=== PATIENT | male | born 1990 | race Caucasian/White ===

== ENCOUNTER 2021-07-03 13:27 | Outpatient (CLI) | payer OTHER, SELFPAY ==
[2021-07-03 14:47] LABS: SARS-CoV-2 RNA PCR Negative (Negative)
== END 2021-07-03 13:28 | disposition home or self-care (01) ==
LOC: CHSLAB 13:31
PROVIDERS: PCP Internal Medicine; Visit Provider Internal Medicine
DX: J06.9 Acute upper respiratory infection, unspecified (principal); Z20.822 Contact with and (suspected) exposure to COVID-19
CPT/HCPCS: C9803; U0003; U0005

== ENCOUNTER 2021-10-02 12:37 | Outpatient (CLI) | payer OTHER, SELFPAY ==
[2021-10-02 13:22] LABS: SARS-CoV-2 Ag Positive (Negative)
[2021-10-02 13:31] LABS: Influenza Control Valid (Valid)
== END 2021-10-02 12:38 | disposition home or self-care (01) ==
LOC: CHSLAB 12:39
PROVIDERS: PCP Internal Medicine; Visit Provider Internal Medicine
DX: U07.1 COVID-19 (principal); J06.9 Acute upper respiratory infection, unspecified
CPT/HCPCS: 87081; 87426; 87804; 87880; C9803